=== PATIENT | female | born 2000 | race African-American/Black ===

== ENCOUNTER 2022-01-10 18:35 | Emergency (ER) | payer SELFPAY ==
[~2022-01-10] VITALS: Ht 157.5 cm; Wt 77.0 kg
--- NOTE | 2022-01-10 18:46 | PHYS DOC ---
General Adult EDM: Chief Complaint: SYNCOPE HPI: HPI: Patient is a 21 year old female presented to the ED today to be evaluated after having a syncope episode. Patient had gone to donate plasma. She passed out during the process. She refused EMS to transport her to the emergency room. She was left alone and this states she passed out again. Patient denies any symptoms right now. Review of Systems: Review of Systems: Constitutional: Denies fever or chills. [] Eyes: Denies change in visual acuity. [] HENT: Denies nasal congestion or sore throat. [] Respiratory: Denies cough or shortness of breath. [] Cardiovascular: Denies chest pain or edema. [] GI: Denies abdominal pain, nausea, vomiting, bloody stools or diarrhea. [] : Denies dysuria. [] Musculoskeletal: Denies back pain or joint pain. [] Integument: Denies rash. [] Neurologic: Reports syncope episode. Denies headache, focal weakness or sensory changes. [] Psychiatric: Denies depression or anxiety. [] Heart Score: C/O Chest Pain: N/A Risk Factors: Risk Factors: DM, Current or recent (<one month) smoker, HTN, HLP, family history of CAD, obesity. Risk Scores: Score 0 - 3: 2.5% MACE over next 6 weeks - Discharge Home Score 4 - 6: 20.3% MACE over next 6 weeks - Admit for Clinical Observation Score 7 - 10: 72.7% MACE over next 6 weeks - Early Invasive Strategies Current Medications: Current Medications Medications (Trade) Dose Ordered Sig/Jose Manuel Start Time Stop Time Status Last Admin Dose Admin Sodium Chloride 1,000 ml @ 1,000 mls/hr 1X ONCE 01/10/22 18:45 01/10/22 19:44 UNV Physical Exam: PE: Constitutional: Well developed, well nourished, no acute distress, non-toxic appearance. [] HENT: Normocephalic, atraumatic, bilateral external ears normal, oropharynx moist, no oral exudates, nose normal. [] Eyes: PERRLA, EOMI, conjunctiva normal, no discharge. [] Neck: Normal range of motion, no tenderness, supple, no stridor. [] Cardiovascular:Heart rate regular rhythm, no murmur [] Lungs & Thorax: Bilateral breath sounds clear to auscultation [] Abdomen: Bowel sounds normal, soft, no tenderness, no masses, no pulsatile masses. [] Skin: Warm, dry, no erythema, no rash. [] Back: No tenderness, no CVA tenderness. [] Extremities: No tenderness, no cyanosis, no clubbing, ROM intact, no edema. [] Neurologic: Alert and oriented X 3, normal motor function, normal sensory function, no focal deficits noted. Cranial nerves II through XII intact Psychologic: Affect normal, judgement normal, mood normal. [] EKG: EK interpreted by Dr. Shook sinus tachycardia heart rate 101 no STEMI [] Radiology/Procedures: Radiology/Procedures: [] Course & Med Decision Making: Course & Med Decision Making pertinent Labs and Imaging studies reviewed. (See chart for details) This is a 21-year-old female presented to the ED today to be evaluated after having a syncope episode while donating plasma. Vitals on arrival to the ED temperature 97.5, heart rate 110, respirations 16 on room air, blood pressure 88/52, O2 sats 96% on room air. IV fluids were started. Blood pressure improved currently 96 over low 60s with half liter of fluids in CBC with a WBC of 13.8, potassium 3.2, patient was given oral potassium repla cement, glucose 191 anion gap is normal. Chest x-ray is negative for any acute findings, UA negative for infection. Patient feeling better. Discharged home. Follow-up with PCP next week Melanie Disclaimer: Melanie Disclaimer: This electronic medical record was generated, in whole or in part, using a voice recognition dictation system. Departure Departure Impression: Primary Impression: Syncope Qualified Codes: R55 - Syncope and collapse Additional Impression: Hypokalemia Disposition: HOME / SELF CARE / HOMELESS Condition: STABLE Patient Instructions: Hypokalemia-Brief, Syncope, [id number] Additional Instructions: Your work-up in the emergency room showed your potassium was slightly low at 3.2. Please increase your dietary potassium intake through foods like bananas. Please follow-up with your doctor in 1 to 2 weeks. Ensure you eat a full meal including a protein before donating blood or plasma SUNDAY ZABALA APRN Jan 10, 2022 18:46
[2022-01-10] MEDS ORDERED: IV NORMAL SALINE 1000ML BAG 1,000 ML IV ONE (19:00)
[2022-01-10 19:21] LABS: BASO % 0 % (0-3); EOS # 0.1 x10^3/uL (0.0-0.7); EOS % 1 % (0-3); HEMATOCRIT 39.4 % (36.0-47.0); HEMOGLOBIN 12.3 g/dL (12.0-15.5); LYMPH # 3.2 x10^3/uL (1.0-4.8); LYMPH % 23 % (24-48); MEAN CORPUSCULAR HEMOGLOBIN 26 pg (25-35); MEAN CORPUSCULAR HGB CONC 31 g/dL (31-37); MEAN CORPUSCULAR VOLUME 83 fL (79-100); MONO # 0.8 x10^3/uL (0.0-1.1); MONO % 6 % (0-9); NEUT # 9.6 x10^3/uL (1.8-7.7); NEUT % 70 % (31-73); PLATELET COUNT 282 x10^3/uL (140-400); RED BLOOD COUNT 4.74 x10^6/uL (3.50-5.40); RED CELL DISTRIBUTION WIDTH 16.2 % (11.5-14.5); WHITE BLOOD COUNT 13.8 x10^3/uL (4.0-11.0)
[2022-01-10 19:31] LABS: CALCIUM 8.4 mg/dL (8.5-10.1); CREATININE 1.1 mg/dL (0.6-1.0); GFR 76.6; POTASSIUM 3.2 mmol/L (3.5-5.1)
[2022-01-10 19:42] LABS: MAGNESIUM 1.7 mg/dL (1.8-2.4); TOTAL BILIRUBIN 0.3 mg/dL (0.2-1.0); TOTAL PROTEIN 6.1 g/dL (6.4-8.2)
[2022-01-10 20:15] LABS: BILIRUBIN,URINE NEGATIVE (NEG); CLARITY,URINE CLEAR; COLOR,URINE YELLOW; NITRITE,URINE NEGATIVE (NEG); PH,URINE 5.5 (<5.0-8.0); PROTEIN,URINE NEGATIVE (NEG-TRACE); UROBILINOGEN,URINE 0.2 mg/dL (0.2 mg/dL)
[2022-01-10 20:20] LABS: BACTERIA,URINE MODERATE /HPF (0-FEW); HYALINE CASTS, URINE FEW /HPF
[2022-01-10 20:23] LABS: AMPHETAMINE/METHAMPHETAMINE NEG (NEG); BARBITURATES NEG (NEG); BENZODIAZEPINES NEG (NEG); CANNABINOIDS NEG (NEG); COCAINE NEG (NEG); METHADONE NEG (NEG); OPIATES NEG (NEG); PHENCYCLIDINE NEG (NEG)
[2022-01-10] MEDS ORDERED: ONDANSETRON PF 4 MG/2 ML VIAL. IVP ONE (20:30)
--- NOTE | 2022-01-10 20:58 | RAD ---
EXAM: Chest, single view. HISTORY: Syncope. COMPARISON: None. FINDINGS: A frontal view of the chest is obtained. There is no infiltrate, pleural effusion or pneumo thorax. The heart is normal in size. IMPRESSION: No acute pulmonary finding. Electronically signed by: Adina Vital MD (01/10/2022 8:55 PM) [facility]
--- NOTE | 2022-01-10 21:06 | EKG ---
[facility] [address] [place] [address] Test Date: 2022-01-10 Test Time: 18:39:09 Pat Name: FINA MOMIN Department: Room: Gender: F Channel Layer: : 2000 Requested By: SUNDAY ZABALA Order Number: [id number] Reading MD: Nate Lopez Measurements Intervals [place] Rate: 101 P: 39 UT: 150 QRS: 38 QRSD: 74 T: 7 QT: 346 QTc: 449 Interpretive Statements SINUS TACHYCARDIA LEFT ATRIAL ABNORMALITY ABNORMAL ECG RI6.02 No previous ECG available for comparison Electronically Signed On 01-11-2022 13:50:20 LINE ERECTOR by Nate Lopez
[2022-01-10] MEDS ORDERED: POTASSIUM CHLORIDE 20 MEQ TABLET.ER. PO ONE (21:15)
[2022-01-10 22:06] VITALS: BP 90/56
== END 2022-01-10 21:45 | disposition home or self-care (01) ==
LOC: ER 18:35
DX: R55 Syncope and collapse (principal); E87.6 Hypokalemia
CPT/HCPCS: 36415; 71045; 80053; 80307; 81001; 81025; 83735; 84484; 85025; 87086; 93005; 96361; 96374; 99285; J2405; J7030